=== PATIENT | male | born 1960 | race Caucasian/White ===

== ENCOUNTER → 2018-12-04 20:16 | Emergency (ER) | payer OTHER ==
[~2018-12-04 20:16] MED LIST: NS 0.9% 1000 ML** 1,000 ML IV ONE
--- NOTE | 2018-12-04 20:33 | ED ---
Dizziness - HPI Summary HPI Summary: Patient is a 58 y/o M presenting to ED via EMS with complaints of sudden onset dizziness characterized as a light-headedness, nausea, diaphoresis, shaking. Patient states that he was standing in the line of a restaurant when Sx onset. He attempted to go to the restroom but there was a line and so he attempted to walk back to his hotel room, which was a block away. However, he was unable to make it to his hotel room, stating that he had to crouch down on the sidewalk and hold onto a street sign. Sx spontaneously resolved quickly, patient states that he is unsure of the duration of the episode. He denies dizziness at present but states that he feels thirsty and fatigued. Patient notes that he drove six hours today to [place], states that he drove a convertible with the top down. He states he had minimal food and fluids today, stating last meal was around 1600 today and consisted of two beers and icelandic fries. No similar episodes of such Sx are reported. He denies PMHx. Patient notes that he is not particularly active. He reports weekly alcohol consumption, has never smoked tobacco, and denies substance usage. On triage, pain is denied, nothing is noted to aggravate/alleviate Sx. Home medications and allergies are reviewed. - History Of Current Complaint Chief Complaint: EDSyncope Stated Complaint: WEAKNESS PER EMS Time Seen by Provider: 12/04/18 20:22 Hx Obtained From: Patient Onset/Duration: Resolved, Suddenly Timing: Intermittent Episode Lasting Severity Currently: None - pain denied Character: Lightheaded, Dizzy Aggravating Factor(s): Nothing Alleviating Factor(s): Nothing Associated Signs And Symptoms: Positive: Nausea, Diaphoresis, Other: - dizziness , shaking, fatigued, thirsty - Allergies/Home Medications Allergies/Adverse Reactions: Allergies Allergy/AdvReac Type Severity Reaction Status Date / Time No Known Allergies Allergy Verified 12/04/18 20:25 Home Medications: Home Medications NK [No Home Medications Reported] 12/04/18 [History Confirmed 12/04/18] PMH/Surg Hx/FS Hx/Imm Hx Sensory History: Denies: Hx Legally Blind, Hx Deafness Opthamlomology History: Denies: Hx Legally Blind EENT History: Denies: Hx Deafness Infectious Disease History: No Infectious Disease History: Denies: Traveled Outside the [place] in Last 30 Days - Family History Known Family History: Positive: Other - FMHx of autism - Social History Alcohol Use: Weekly Substance Use Type: Reports: None Smoking Status (MU): Never Smoked Tobacco Review of Systems Constitutional: Other - POSITIVE - THIRSTY Positive: Fatigue, Skin Diaphoresis Positive: Nausea Neurological: Other - POSITIVE - SHAKING, DIZZINESS All Other Systems Reviewed And Are Negative: Yes Physical Exam - Summary Physical Exam Summary: VITAL SIGNS: Reviewed. GENERAL: Patient is a well-developed and nourished male who is lying comfortable in the stretcher. Patient is not in any acute respiratory distress. HEAD AND FACE: No signs of trauma. No ecchymosis, hematomas or skull depressions. No sinus tenderness. EYES: PERRLA, EOMI x 2, No injected conjunctiva, no nystagmus. EARS: Hearing grossly intact. Ear canals and tympanic membranes are within normal limits. MOUTH: Oropharynx within normal limits. NECK: Supple, trachea is midline, no adenopathy, no JVD, no carotid bruit, no c- spine tenderness, neck with full ROM CHEST: Symmetric, no tenderness at palpation LUNGS: Clear to auscultation bilaterally. No wheezing or crackles. CVS: Regular rate and rhythm, S1 and S2 present, no murmurs or gallops appreciated. ABDOMEN: Soft, non-tender. No signs of distention. No rebound no guarding, and no masses palpated. Bowel sounds are normal. EXTREMITIES: FROM in all major joints, no edema, no cyanosis or clubbing. NEURO: Alert and oriented x 3. No acute neurological deficits. Speech is normal and follows commands. SKIN: Dry and warm Triage Information Reviewed: Yes Vital Signs On Initial Exam: Initial Vitals Temp Pulse Resp BP Pulse Ox 97.4 F 76 18 138/75 100 12/04/18 20:18 12/04/18 20:18 12/04/18 20:18 12/04/18 20:18 12/04/18 20:18 Vital Signs Reviewed: Yes Diagnostics - Vital Signs Vital Signs Temp Pulse Resp BP Pulse Ox 12/04/18 20:24 75 129/79 99 12/04/18 20:18 97.4 F 76 18 138/75 100 - Laboratory Result Diagrams: 12/04/18 20:43 12/04/18 20:43 Lab Statement: Any lab studies that have been ordered have been reviewed, and results considered in the medical decision making process. - EKG 2048 Cardiac Rate: NL - rate of 72 BPM EKG Rhythm: Sinus Rhythm Summary of EKG Findings: EKG showed sinus rhythm with rate of 72 BPM, normal axis, normal intervals, and no iscehmic changes. Re-Evaluation - Re-Evaluation First Eval Re-Evaluation Time: 21:30 Change: Improved Comment: Orthostatics were done, which were fine. Patient notes that he has had a lot of stress in his life recently dealing with his severely autistic son. Patient has been drinking PO normally. Patient will be ambulated around ED. Second Eval Re-Evaluation Time: 21:34 Change: Improved Comment: Patient was ambulated with a steady gait, he will be discharged to home. Patient is agreeable with this. Dizzy Course/Dx - Course Course Of Treatment: Patient is a 58 y/o M presenting to ED via EMS with complaints of sudden onset dizziness characterized as a light-headedness, nausea , diaphoresis, shaking. Patient states that he was standing in the line of a restaurant when Sx onset. Sx spontaneously resolved quickly, patient states that he is unsure of the duration of the episode. He denies dizziness at present but states that he feels thirsty and fatigued. Patient notes that he drove six hours today to [place], states that he drove a convertible with the top down. He states he had minimal food and fluids today, stating last meal was around 1600 today and consisted of two beers and icelandic fries. No similar episodes of such Sx are reported. He denies PMHx. He reports weekly alcohol consumption, has never smoked tobacco, and denies substance usage. Physical exam is unremarkable. EKG showed sinus rhythm with rate of 72 BPM, normal axis , normal intervals, and no iscehmic changes. Labs showed MCH 32, MPV 7.2, glucose 103, lactic acid 1.5, trop 0. During ED course, patient received fluids. Orthostatics were done, which were fine. Patient notes that he has had a lot of stress in his life recently dealing with his severely autistic son. Patient has been drinking PO normally. Patient was ambulated with a steady gait , he will be discharged to home. Patient is agreeable with this. - Diagnoses Provider Diagnoses: Heat exhaustion, Pre-syncope Discharge - Sign-Out/Discharge Documenting (check all that apply): Patient Departure - discharge Patient Received Moderate/Deep Sedation with Procedure: No - Discharge Plan Condition: Stable Disposition: HOME Patient Education Materials: Heat Exhaustion (ED), Near Syncope (ED) Referrals: [facility] [Outside] - 3 Days Additional Instructions: PLEASE RETURN TO THE ED IMMEDIATELY FOR WORSENING OR CONCERNING SYMPTOMS. FOLLOW UP WITH YOUR PRIMARY CARE PHYSICIAN WITHIN THREE DAYS. - Attestation Statements Document Initiated by Scribe: Yes Documenting Scribe: FELA AYERS Provider For Whom Scribe is Documenting (Include Credential): RODRIGO EWING MD Scribe Attestation: I, FELA AYERS, scribed for RODRIGO EWING MD on 12/04/18 at 2143. Status of Scribe Document: Ready
[2018-12-04 20:49] LABS: ABS Eosinophils 0.1 10^3/ul (0-0.6); ABS Lymphocytes 2.5 10^3/ul (1.0-4.8); ABS Monocytes 0.5 10^3/ul (0-0.8); ABS Neutrophils 2.5 10^3/ul (1.5-7.7); Eosinophil % 1.9 %; Hematocrit 45 % (42-52); Hemoglobin 15.3 g/dL (14.0-18.0); Lymphocyte % 44.9 %; Mean Corpuscular HGB Conc 34 g/dL (31-36); Mean Corpuscular Hemoglobin 32 pg (27-31); Mean Corpuscular Volume 93 fL (80-94); Mean Platelet Volume 7.2 fL (7.4-10.4); Nucleated Red Blood Cells % 0.1; Platelet Count 272 10^3/uL (150-450); Red Blood Count 4.81 10^6 /uL (4.18-5.48); Red Cell Distribution Width 13 % (10.5-15); White Blood Count 5.7 10^3/uL (3.5-10.8)
[2018-12-04 21:05] LABS: Albumin 4.5 g/dL (3.2-5.2); Albumin/Globulin Ratio 1.7 (1-3); BUN/Creatinine Ratio 11.8 (8-20); Calcium 9.8 mg/dL (8.6-10.3); EGFR African American 82.9 (>60); EGFR Non-African American 68.5 (>60); Globulin 2.7 g/dL (2-4); Potassium 3.8 mmol/L (3.5-5.0); Total Bilirubin 0.5 mg/dL (0.2-1.0); Total Protein 7.2 g/dL (6.4-8.9)
[2018-12-04 21:35] VITALS: BP 147/97
== END | disposition home or self-care (01) ==
LOC: ED 20:16
DX: T67.5XXA Heat exhaustion, unspecified, initial encounter (principal); X58.XXXA Exposure to other specified factors, initial encounter
CPT/HCPCS: 36415; 80053; 82550; 83605; 83735; 84484; 85025; 93005; 99282